=== PATIENT | male | born 1995 | race Asian ===

== ENCOUNTER 2017-07-18 15:45 | Emergency (ER) | payer SELFPAY ==
[~2017-07-18] VITALS: Ht 175.3 cm; Wt 62.6 kg
[2017-07-18 16:03] VITALS: BP_SYST 117
[2017-07-18] MEDS ORDERED: KETOROLAC TROMETHAMINE 60 MG/2 ML VIAL IM ONE (16:30)
[2017-07-18 17:30] VITALS: BP_SYST 112
== END 2017-07-18 17:30 | disposition home or self-care (01) ==
LOC: SED 15:45
DX: S16.1XXA Strain of muscle, fascia and tendon at neck level, initial encounter (principal); S39.012A Strain of muscle, fascia and tendon of lower back, initial encounter; S80.02XA Contusion of left knee, initial encounter; S80.01XA Contusion of right knee, initial encounter; F17.200 Nicotine dependence, unspecified, uncomplicated; Z71.6 Tobacco abuse counseling; V89.2XXA Person injured in unspecified motor-vehicle accident, traffic, initial encounter; Y93.89 Activity, other specified; Y92.488 Other paved roadways as the place of occurrence of the external cause; Y99.8 Other external cause status
CPT/HCPCS: 72040; 72100; 73564; 99284; J1885